=== PATIENT | female | born 1955 | race Two or more races ===

== ENCOUNTER 2017-09-14 07:47 | Outpatient (CLI) | payer OTHER | END 2017-09-14 08:00 | disposition home or self-care (01) | LOC: LAB 07:47 | DX: C73 Malignant neoplasm of thyroid gland (principal); D51.3 Other dietary vitamin B12 deficiency anemia; D50.8 Other iron deficiency anemias; K90.89 Other intestinal malabsorption; E53.9 Vitamin B deficiency, unspecified; E89.0 Postprocedural hypothyroidism; E78.2 Mixed hyperlipidemia; I10 Essential (primary) hypertension; D51.8 Other vitamin B12 deficiency anemias; E55.9 Vitamin D deficiency, unspecified; E03.8 Other specified hypothyroidism; D51.1 Vitamin B12 deficiency anemia due to selective vitamin B12 malabsorption with proteinuria; I11.9 Hypertensive heart disease without heart failure ==

== ENCOUNTER 2017-09-14 09:16 | Outpatient (CLI) | payer OTHER | END 2017-09-14 09:26 | disposition home or self-care (01) | LOC: MAMO-SONO 09:16 | DX: Z12.31 Encounter for screening mammogram for malignant neoplasm of breast (principal); Z87.898 Personal history of other specified conditions; N63.10 Unspecified lump in the right breast, unspecified quadrant; N63.20 Unspecified lump in the left breast, unspecified quadrant; C73 Malignant neoplasm of thyroid gland; D51.3 Other dietary vitamin B12 deficiency anemia; D50.8 Other iron deficiency anemias; K90.89 Other intestinal malabsorption; E53.9 Vitamin B deficiency, unspecified; E89.0 Postprocedural hypothyroidism; E78.2 Mixed hyperlipidemia; I10 Essential (primary) hypertension ==

== ENCOUNTER 2017-09-30 13:32 | Outpatient (CLI) | payer OTHER | END 2017-09-30 13:37 | disposition home or self-care (01) | LOC: LAB 13:32 | DX: R97.8 Other abnormal tumor markers (principal) ==

== ENCOUNTER 2017-12-04 10:00 | Inpatient (IN) | payer OTHER ==
[~2017-12-04] VITALS: Ht 165.1 cm; Wt 70.3 kg
[2017-12-04] MEDS ORDERED: TENORMIN25 MG PO (11:02)
[2017-12-04] MEDS ORDERED: SYNTHROID88 MCG PO (11:02)
[2017-12-04] MEDS ORDERED: GABAPENTIN600 MG PO (11:02)
[2017-12-04] MEDS ORDERED: LIPITOR20 MG PO (11:03)
[2017-12-04] MEDS ORDERED: B-12500 MCG PO (11:03)
[2017-12-04] MEDS ORDERED: INTEGRA F CAPS1 EACH PO (11:03)
[2017-12-04] MEDS ORDERED: ZETIA10 MG PO (11:03)
[2017-12-04] MEDS ORDERED: VIT C-ROSE HIP500 MG PO (11:04)
[2017-12-04] MEDS ORDERED: VITAMIN D3400 UNI1 PO (11:05)
== END 2017-12-12 13:02 | DRG 735 ==
LOC: O/R 12-10 05:45 → OB/GYN 12-10 05:45 → SURH 12-10 09:45 → OB/GYN 12-10 13:10
PROVIDERS: Obstetrics & Gynecology Gynecologic Oncology
PROC: 07TC0ZZ Resection of Pelvis Lymphatic, Open Approach (ICD-10-PCS; 2017-12-10)
PROC: 0UT70ZZ Resection of Bilateral Fallopian Tubes, Open Approach (ICD-10-PCS; 2017-12-10)
PROC: 0UT20ZZ Resection of Bilateral Ovaries, Open Approach (ICD-10-PCS; 2017-12-10)
PROC: 0DBU0ZZ Excision of Omentum, Open Approach (ICD-10-PCS; 2017-12-10)
PROC: 0UT90ZZ Resection of Uterus, Open Approach (ICD-10-PCS; principal; 2017-12-10 09:45)
DX: C54.1 Malignant neoplasm of endometrium (principal); I10 Essential (primary) hypertension

== ENCOUNTER 2018-01-19 09:48 | Outpatient (CLI) | payer OTHER ==
[~2018-01-19 09:48] MED LIST: B-12500 MCG PO; GABAPENTIN600 MG PO; INTEGRA F CAPS1 EACH PO; LIPITOR20 MG PO; SYNTHROID88 MCG PO; TENORMIN25 MG PO; VIT C-ROSE HIP500 MG PO; VITAMIN D3400 UNI1 PO; ZETIA10 MG PO
== END 2018-01-19 10:17 | disposition home or self-care (01) ==
LOC: LAB 09:48
DX: C54.1 Malignant neoplasm of endometrium (principal); C73 Malignant neoplasm of thyroid gland; D51.3 Other dietary vitamin B12 deficiency anemia; D50.8 Other iron deficiency anemias; K90.89 Other intestinal malabsorption; E53.8 Deficiency of other specified B group vitamins; E89.0 Postprocedural hypothyroidism; E78.2 Mixed hyperlipidemia; I10 Essential (primary) hypertension; I11.9 Hypertensive heart disease without heart failure

== ENCOUNTER 2018-02-05 10:03 | Outpatient (CLI) | payer OTHER | END 2018-02-05 10:35 | disposition home or self-care (01) | LOC: SONOGRAMA 10:03 | DX: M25.512 Pain in left shoulder (principal) ==

== ENCOUNTER 2018-07-30 08:13 | Outpatient (CLI) | payer OTHER | END 2018-07-30 08:30 | disposition home or self-care (01) | LOC: NUCLEAR 08:13 | DX: I20.9 Angina pectoris, unspecified (principal) | CPT/HCPCS: 78452; 93017; A9500; J0153 ==

== ENCOUNTER 2018-08-31 07:35 | Outpatient (CLI) | payer OTHER | END 2018-08-31 17:12 | disposition home or self-care (01) | LOC: EKG 07:35 | DX: I10 Essential (primary) hypertension (principal) ==